=== PATIENT | female | born 1955 | race Caucasian/White ===

== ENCOUNTER → 2016-11-21 | Outpatient (CLI) | payer OTHER | END | disposition home or self-care (01) | LOC: CDC 16:05 | DX: I51.7 Cardiomegaly (principal); M75.101 Unspecified rotator cuff tear or rupture of right shoulder, not specified as traumatic; M19.011 Primary osteoarthritis, right shoulder; M25.511 Pain in right shoulder | CPT/HCPCS: 93000 ==

== ENCOUNTER 2017-12-10 13:35 | Day surgery (SDC) | payer OTHER ==
[~2017-12-10] VITALS: Ht 170.2 cm; Wt 90.7 kg
[~2017-12-10 13:35] MED LIST: COREG6.25 M1 PO; COZAAR100 MG PO; HYDROCHLOROTHIA25 MG PO; LIPITOR40 MG PO; SINGULAIR10 MG PO
== END 2017-12-10 15:00 | disposition home or self-care (01) ==
LOC: PAIN 13:35 → SDC 14:00 → PAIN 14:00
DX: M47.816 Spondylosis without myelopathy or radiculopathy, lumbar region (principal); M51.26 Other intervertebral disc displacement, lumbar region; J44.9 Chronic obstructive pulmonary disease, unspecified; E78.00 Pure hypercholesterolemia, unspecified; G89.29 Other chronic pain; I10 Essential (primary) hypertension; E66.9 Obesity, unspecified; Z68.31 Body mass index [BMI] 31.0-31.9, adult; E03.9 Hypothyroidism, unspecified
CPT/HCPCS: J1030; J2250; S0020